=== PATIENT | female | born 1985 | race Caucasian/White ===

== ENCOUNTER 2024-06-01 20:39 | Emergency (ER) | payer OTHER, SELFPAY ==
[2024-06-01 20:42] VITALS: BP 170/90
--- NOTE | 2024-06-01 20:55 | ED.GENMED ---
History of Present Illness
General
Chief Complaint: Heart Rate Problem
Source: patient
Exam Limitations: none
Time Seen by Provider: 06/01/24 20:47
History of Present Illness
History of Present Illness:
This is a 38 year old female that comes in with c/o increased heart rate. States that this started about 1-2 weeks [place] State that her Heart rate would go up and down. States that she stopped drinking Coffee and alcohol
at that time. States that she came home and saw the PCP and they were going to watch this. State that tonight her heart rate went really high and it wasn't going down. States that for the past few days she has had chest pain under her breast that is
on and off. States that this last about a half hour. States that it is there very slightly at this time. States that she has felt winded. Denies any fever, chills, abd pain, nausea, vomiting, diarrhea, headache, dizziness, urinary burning.
Past History
Past History
ED Past Medical History: None and Asthma (As child); Negative HTN, Hypercholesterolemia or NIDDM
ED Past Surgical History: None
Social History
Tobacco: Non-smoker
Alcohol: Occasional
Personal:
Living: with family
Review of Systems
Review of Systems
All Other Systems: ROS reviewed and negative except as documented in HPI and ROS
Constitutional: Reports no symptoms; Denies fever or chills
EENT: Reports no symptoms
Respiratory: Reports trouble breathing (Feels winded)
Cardiac: Reports chest pain and other (Fast heart rate)
ABD/GI: Reports no symptoms; Denies nausea, vomiting or diarrhea
: Reports no symptoms
Musculoskeletal: Reports no symptoms
Skin: Reports no symptoms
Neurological: Reports no symptoms; Denies dizzy or headache
Psychiatric: Reports no symptoms
Phy Exam
General Physical Exam
General Presentation: well appearing and no apparent distress
General age: appears stated age
General Skin: warm and dry
General Habitus: normal
General Mental: alert
General Hydration: appears well hydrated
ENT Exam
ENT Exam: TM's normal, pharynx normal and neck supple
Eye Exam
Eye Exam: EOMI
Cardiovascular Exam
Cardiovascular Exam: no edema, no murmur, normal peripheral pulses and tachycardia
Pulmonary Exam
Pulmonary Exam: lungs clear, no respiratory distress, no rales, chest non tender, no crackles, no rhonchi, no wheezing and no cough
Gastrointestinal Exam
Gastrointestinal Exam: normal bowel sounds, non tender, soft, no organomegaly, no pulsatile mass and non distended
Musculoskeletal Exam
Musculoskeletal Exam: full ROM and no edema
Skin Exam
Skin Exam: normal color, warm/dry, no rash and no petechia
Course
Orders/Labs/Results
Orders:
Orders
06/01/24 20:43
EKG [Electrocardiogram (*1)] Urgent
Reason for Study: Tachycardia
06/01/24 20:44
EKG- Treatment ONCE
06/01/24 20:54
0.9% Sodium Chloride 1000 ml [Nss] 1,000 ml IV BOLUS
06/01/24 20:55
Test Result ONCE
06/01/24 21:02
CR Chest - 2 Views Urgent
Comment:
Reason For Exam: Chest pain, SOB
06/01/24 21:13
Complete Blood Count/With Diff Urgent
Comprehensive Metabolic Panel Urgent
D-Dimer Urgent
HCG, Serum Qualitative Screen Urgent
Troponin I Urgent
06/01/24 22:25
TSH Reflex To Free T4 Routine
06/01/24 22:35
Metoprolol Xl [Toprol Xl] 12.5 mg PO NOW STA
06/01/24 23:41
Troponin I Urgent
Abnormal Lab Results
06/01/24
21:13
Hct 36.0 L %
(37.0-47.0)
Glucose 128 H mg/dl
(70-99)
06/01/24 21:13
06/01/24 21:13
Glucose nonfasting D-dimer 0.35, Troponin <0.012, HCG negative.
Second Troponin <0.012
Vital Signs
Initial and Last Documented VS:
Initial Vital Signs
Temp Pulse Resp BP Pulse Ox
98.3 F 144 24 170/90 100
06/01/24 20:42 06/01/24 20:42 06/01/24 20:42 06/01/24 20:42 06/01/24 20:42
Last Documented Vital Signs
Temp Pulse Resp BP Pulse Ox
98.3 F 111 28 130/79 97
06/01/24 20:42 06/01/24 23:45 06/01/24 23:45 06/01/24 23:00 06/01/24 23:45
MDM/Problems Addressed
Differential Diagnosis Includes:
Tachycardia, PE,
MDM/Problems Addressed:
This is a 38 year old female that comes in with c/o fast heart rate. States that this [place] 1[place]2 [place] States that tonight her heart rate is just not coming down and the past 2 days on and off she has had slight
left sided chest discomfort.
Will get labs, Chest X-ray and given IV fluids.
Back into see patient. Explained that both Troponin are normal. TSH is normal and her chest x-ray is normal. Will place patient on the Cardiology hot line for further evaluation. Prescription sent to her Pharmacy. Explained that they may increase
this medication or changing to help keep her heart rate under control. Patient to return with increased chest pain, heart rate that is not coming down and between 120-150, or any other concerns.
Chronic conditions affecting care:
NA
Acute Exacerbation and/or Progression of Chronic Illness:
NA
*Radiology
Radiology exam reviewed: preliminary read by ED provider (Chest- Negative for active disease. ) and radiology read reviewed (Chest-NO evidence of active cardiopulmonary disease. )
*Pulse Oximetry
Patient hypoxic: no
*EKG
Interpreted by ED Provider?: Yes
Heart Rate: 121
Rate: tachycardiac
Rhythm: sinus
[place]: normal axis
Interval: normal interval
QRS Pattern: normal QRS
Ischemia: non-specific ST changes (V3, V4, V5, V6)
*Wireless Operator Interpretation
Rate: tachycardiac
Heart Rate: 114
Rhythm: sinus tachycardia
*Critical Care Note
Total Time (30-74mins, 75-104mins- exclusive of procedures): Not Applicable
ED Attending Note
-
Portions of this chart may have been created with voice recognition software.� Occasional wrong word or��sound alike� substitutions may have occurred due to the inherent limitations of voice recognition software.
Discharge Plan
Departure
Patient Disposition: Home (Routine Discharge)
Date of Disposition: 06/02/24
Time of Disposition: 00:24
Patient with high blood pressure during this ER visit?: Yes
Condition: Good
Covid-19: Not Applicable
Discharge Problem:
Tachycardia, Chest pain
Instructions: Sinus Tachycardia (DC), Chest Pain CBC Follow Up, BLOOD PRESSURE
Prescriptions:
New
metoprolol succinate 25 mg tablet extended release 24 hr
12.5 mg PO DAILY Qty: 15 0RF
No Action
magnesium Tablet
1 tab PO DAILY
Patient Comments:
unsure of mg
Referrals:
Nelia Shah MD [Family Provider] - Follow up in 2-3 days
Activity Restrictions/Additional Instructions:
As discussed, your blood work is normal. Your Both Troponin are normal and your D-dimer is negative. Your Chest x-ray is normal along with your Thyroid function. You have been given a prescription for metoprolol 12.5mg daily. You have been place on
the Cardiology hot line. This means that the Processing Lead will call you the next business day to set up an appointment. They may need to increase your dosage to help control your heart rate or change this medication. IF YOU HAVE INCREASED OR
CHANGING CHEST PAIN, OR YOU HAVE ANY OTHER CONCERNS PLEASE RETURN TO THE EMERGENCY ROOM.
Interventions
Interventions:
*Risk Screen - Suicide Last Done: 06/01/24 20:42
*General Assessment Last Done: 06/01/24 21:23
*Neglect/Abuse Screening Last Done: 06/01/24 20:42
ED- Fall Risk Assessment Last Done: 06/01/24 21:23
ED- Cardiac Assessment Last Done: 06/01/24 23:35
ED- Pulmonary Assessment Last Done: 06/01/24 23:35
Discharge Date and Time
Print Language: [id number]
[2024-06-01 21:10] VITALS: BP 136/95
[2024-06-01] MEDS: NSS 1000 IV (21:15)
[2024-06-01 21:18] LABS: % Basophils 0.6 % (0-2); % Eosinophils 1.3 % (0-6); % Immature Granulocytes 0.3 % (0-0.5); % Lymphocytes 41.5 % (20.5-51.1); % Monocytes 7.9 % (1.7-9.3); % Neutrophils 48.4 % (42.2-75.2); Absolute Eosinophils 0.1 10^3/uL (0-0.7); Absolute Lymphocytes 2.9 10^3/uL (1.2-3.4); Absolute Monocytes 0.6 10^3/uL (0.1-0.6); Absolute Neutrophils 3.4 10^3/uL (1.4-6.5); Mean Corp Hgb Conc. 36.1 g/dL (33.0-37.0); Mean Corpuscular Hgb 29.3 pg (27.0-31.0); Mean Corpuscular Volume 81.3 fL (81.0-99.0); Mean Platelet Volume 10.2 fL (7.4-10.4); Nucleated Red Blood Cells % 0 %; Platelet Count 241 10^3/uL (130-400); Red Blood Cell Count 4.43 10^6/uL (4.20-5.40); Red Cell Dist. Width 12.4 % (11.5-14.5); White Blood Cell Count 6.9 10^3/uL (4.8-10.8)
[2024-06-01 21:28] LABS: HCG, Serum Qualitative Screen Negative
[2024-06-01 21:36] LABS: D-Dimer 0.35 ug/mlFEU (0.00-0.50)
[2024-06-01 21:43] LABS: Troponin I < 0.012 ng/ml
[2024-06-01 21:45] LABS: ALT (SGPT) 20 U/L (0-35); AST (SGOT) 24 U/L (14-36); Albumin 4.5 g/dl (3.5-5.0); Alkaline Phosphatase 90 U/L (38-126); Blood Urea Nitrogen 13 mg/dl (7-17); Calcium 9.3 mg/dl (8.4-10.2); Carbon Dioxide 22 mmol/L (22-30); Chloride 106 mmol/L (98-107); Glucose 128 mg/dl (70-99); Potassium 3.6 mmol/L (3.5-5.1); Sodium 138 mmol/L (135-145); Total Bilirubin 0.3 mg/dl (0.2-1.3); Total Protein 7.4 g/dl (6.3-8.2); eGFR > 60.00
[2024-06-01 22:02] VITALS: BP 131/79
[2024-06-01] MEDS: TOPROL XL 12.5 MG PO (22:45)
[2024-06-01 23:00] VITALS: BP 130/79
[2024-06-01 23:22] LABS: TSH Reflex To Free T4 2.57 uIU/ml (0.47-4.68)
[2024-06-02] VITALS: BP 122/83
[2024-06-02 00:22] LABS: Troponin I < 0.012 ng/ml
== END 2024-06-02 00:40 | disposition home or self-care (01) ==
LOC: EMR 20:39
PROVIDERS: Clinical Nurse Specialist Family Health; EMERGENCY PHYSICIAN Emergency Medicine; FAMILY PHYSICIAN Student in an Organized Health Care Education/Training Program
DX: R00.0 Tachycardia, unspecified (principal); R07.89 Other chest pain; R03.0 Elevated blood-pressure reading, without diagnosis of hypertension; J45.909 Unspecified asthma, uncomplicated
CPT/HCPCS: 99284; 96360; 96361; 71046; 80053; 84443; 84484; 84703; 85025; 85379; 93005